=== PATIENT | male | born 1935 | race Caucasian/White ===

== ENCOUNTER 2016-08-26 16:36 | Emergency (ER) | payer MEDICARE, OTHER ==
[2016-08-26 18:39] VITALS: BP 127/67
--- NOTE | 2016-08-26 19:00 | UC ---
Respiratory Complaint HPI - History of Current Complaint Chief Complaint: UCGeneralIllness Stated Complaint: ACHY,COUGH,TIRED Time Seen by Provider: 08/26/16 18:53 Hx Obtained From: Patient Onset/Duration: Sudden Onset - for 3 days with cough., Lasting Days - 3, Still Present Timing: Constant Character: Cough: Productive Associated Signs And Symptoms: Positive: Fever, Chills, Nasal Congestion - Risk Factors Cardiac Risk Factors: Prior [place] Pseudomonas Risk Factors: Negative Tuberculosis Risk Factors: Negative - Allergies/Home Medications Allergies/Adverse Reactions: Allergies Allergy/AdvReac Type Severity Reaction Status Date / Time Penicillins Allergy Rash Verified 08/26/16 18:41 Sulfa Antibiotics Allergy Rash Verified 08/26/16 18:41 Diphenhydramine AdvReac See Comment Verified 08/26/16 18:41 [From Benadryl] Lisinopril AdvReac Coughing Verified 08/26/16 18:41 Simvastatin AdvReac Muscle Ache Verified 08/26/16 18:41 Venlafaxine AdvReac See Comment Verified 08/26/16 18:41 Home Medications: Home Medications Acetaminophen [Extra Strength Acetaminop] 1,000 mg PO Q6H PRN 08/26/16 [History Confirmed 08/26/16] Al Hydrox/Mg Hydrox/Simet LIQ* [Maalox Plus*] 30 ml PO Q4H PRN 08/26/16 [ History Confirmed 08/26/16] Aspirin EC Low Dose* [Ecotrin EC Low Dose*] 81 mg PO DAILY 08/26/16 [History Confirmed 08/26/16] Chlorpheniramine-Dm [Coricidin Hbp Cough & Col 4-30 mg] 1 tab PO Q4H PRN [History Confirmed 08/26/16] Cholecalciferol TAB* [Vitamin D TAB*] 1,000 unit PO DAILY 08/26/16 [History Confirmed 08/26/16] LevoCETirizine TAB (NF) [Xyzal TAB (NF)] 5 mg PO DAILY 08/26/16 [History Confirmed 08/26/16] Metoprolol Tartrate TAB* [Lopressor TAB*] 25 mg PO DAILY 08/26/16 [History Confirmed 08/26/16] Mometasone NASAL (NF) [Nasonex (NF)] 50 mcg NA DAILY 08/26/16 [History Confirmed 08/26/16] Pantoprazole Sodium 20 mg PO DAILY 08/26/16 [History Confirmed 08/26/16] Pravastatin (NF) [Pravachol (NF)] 20 mg PO 1700 08/26/16 [History Confirmed ] Valsartan TAB* [Diovan TAB*] 40 mg PO DAILY 08/26/16 [History Confirmed 08/26/16 ] PMH/Surg Hx/FS Hx/Imm Hx Cardiovascular History Of: Reports: Cardiac Disorders - Surgical History Surgical History: Yes Surgery Procedure, Year, and Place: QUAD BYPASS--2008 - Family History Known Family History: Positive: Hypertension - Social History Occupation: Retired Lives: With Family Alcohol Use: None Substance Use Type: None Smoking Status (MU): Never Smoked Tobacco Have You Smoked in the Last Year: No Review of Systems Constitutional: Fever, Chills ENT: Sore Throat, Nasal Discharge Respiratory: Shortness Of Breath, Cough All Other Systems Reviewed And Are Negative: Yes Physical Exam Triage Information Reviewed: Yes Appearance: No Pain Distress, Well-Nourished, Ill-Appearing Vital Signs: Initial Vital Signs Temp 99.8 F 08/26/16 18:29 Pulse 104 08/26/16 18:29 Resp 28 08/26/16 18:29 BP 127/67 08/26/16 18:29 Pulse Ox 97 08/26/16 18:29 Vital Signs Reviewed: Yes Eyes: Positive: Conjunctiva Clear ENT: Positive: Pharynx normal, Nasal congestion, TMs normal Neck: Positive: Supple, No Lymphadenopathy Respiratory: Positive: Lungs clear Cardiovascular: Positive: RRR, No Murmur Musculoskeletal Exam: Normal Neurological Exam: Normal Psychological Exam: Normal Skin Exam: Normal UC Diagnostic Evaluation - Laboratory O2 Sat by Pulse Oximetry: 97 Respiratory Course/Dx - Differential Dx/Diagnosis Differential Diagnosis/HQI/PQRI: Influenza, Lower Resp Infection, Sinusitis Provider Diagnoses: Pneumonia organism unknown. Discharge - Discharge Plan Condition: Stable Disposition: HOME Prescriptions: Levofloxacin TAB* [Levaquin TAB*] 500 mg PO DAILY #7 tab Patient Education Materials: Community Acquired Pneumonia (ED), Levofloxacin ( By mouth)
--- NOTE | 2016-08-26 19:32 | RAD ---
INDICATION: Cough and shortness of breath. COMPARISON: There are no prior studies available for comparison. TECHNIQUE: Dual-energy PA and lateral views of the chest were obtained. FINDINGS: The patient is status post coronary artery bypass surgery. The heart is within normal limits in size. Mediastinal contours appear normal. The lungs are slightly hyperinflated. There is a small infiltrate at the medial right lung base. The lungs are otherwise clear. No pleural effusion is seen. IMPRESSION: SMALL RIGHT BASILAR INFILTRATE.
[2016-08-26] MEDS ORDERED: Levofloxacin TAB* 500 MG PO ONE (19:42)
== END 2016-08-26 19:56 | disposition home or self-care (01) ==
LOC: UCCORT 16:36
DX: J18.9 Pneumonia, unspecified organism (principal); Z88.0 Allergy status to penicillin; Z88.2 Allergy status to sulfonamides; Z88.8 Allergy status to other drugs, medicaments and biological substances
CPT/HCPCS: 71020; 87502; 99212; G0463